=== PATIENT | male | born 1995 | race Caucasian/White ===

== ENCOUNTER → 2023-06-18 | Outpatient (CLI) | payer BC ==
--- NOTE | 2023-06-19 10:35 | CT ---
EXAMINATION TYPE: CT urogram wo/w con DATE OF EXAM: 06/18/2023 COMPARISON: None HISTORY: Hematuria. CT DLP: 3472.5 mGycm Automated exposure control for dose reduction was used. CONTRAST: Performed with IV Contrast, patient injected with 100 ml mL of Isovue 370. FINDINGS: SYSTEM: Noncontrast imaging demonstrates mild pelvocaliectasis bilaterally without evidence of freya hydronep hrosis. There is no evidence of renal or ureteral. Postcontrast imaging demonstrates symmetric enhanc ement and prompt excretion. There is no evidence suspicious solid or cystic renal mass. There is a le ft-sided too small to characterize 3 mm posterior exophytic renal cortex lesion. The ureters are segmentally demonstrated to be of normal course and caliber with no evidence of calci fication or filling. The bladder distends normally with no filling defect or wall thickening. ABDOMEN AND PELVIS: Adrenal gland is normal morphology. The pancreas has a normal appearance. There is no evidence of gal lstones. Liver and spleen are homogeneous. No focal mass. Portal vein enhances normally. Mesenteric vasculature enhances normally. Aorta normal caliber. There is no free fluid or free air. Small fat containing periumbilical hernia. Bowel gas pattern nonspecific with no obstruction. Osseous structures degenerative change L5-S1. There is a hiatal hernia. IMPRESSION: 1. NO EVIDENCE OF HYDRONEPHROSIS, NEPHROLITHIASIS OR SUSPICIOUS RENAL, URETERAL OR BLADDER NEOPLASM. THERE IS A SMALL EXOPHYTIC LEFT MID POLE RENAL LESION TOO SMALL TO CHARACTERIZE MEASURING 3.3 MM 2. THERE IS A SMALL HIATAL HERNIA WITH THICKENING OF THE WALL THE DISTAL ESOPHAGUS WHICH COULD BE ASS OCIATED WITH REFLUX ESOPHAGITIS. CORRELATE CLINICALLY.
== END | disposition home or self-care (01) ==
LOC: RADCTMAIN 15:28
PROVIDERS: ATTEND Family Medicine
DX: K44.9 Diaphragmatic hernia without obstruction or gangrene (principal); N28.9 Disorder of kidney and ureter, unspecified; R31.9 Hematuria, unspecified
CPT/HCPCS: 74178; 74400; Q9967